=== PATIENT | male | born 1985 ===

== ENCOUNTER 2025-09-10 09:50 | Outpatient (CLI) | payer OTHER ==
[~2025-09-10 09:50] MED LIST: CEFADROXIL500 MG PO
== END 2025-09-10 09:57 | disposition home or self-care (01) ==
LOC: RAD 09:50
DX: M54.2 Cervicalgia (principal); M46.02 Spinal enthesopathy, cervical region; M62.838 Other muscle spasm; G44.89 Other headache syndrome